=== PATIENT | male | born 1960 | race Caucasian/White ===

== ENCOUNTER 2020-09-11 10:12 | Emergency (ER) | payer BC, SELFPAY ==
[2020-09-11 10:23] VITALS: BP 119/78; PULSE 70; RESP 16; TEMP 36.2; O2SAT 98
--- NOTE | 2020-09-11 10:54 | W.ED.GENAD ---
Discharge Plan Disposition Patient Disposition: HOME Condition: Stable Discharge Details Clinical Impression: Shingles, Lumbar strain Primary Care Provider: Unknown,Unknown ED Provider: Uzma Carrasquillo Home Meds and New Rx's Prescriptions: New valacyclovir 1 gram tablet 1,000 mg PO TID 7 Days Qty: 21 RF: 0 No Action nystatin 500,000 unit Tablet 500,000 unit PO DAILY RF: 0 calcium carbonate-vitamin D3 [Calcium + D] 600 mg(1,500mg) -200 unit Tablet 1 tab PO DAILY RF: 0 disulfiram 250 mg Tablet 250 mg PO DAILY RF: 0 ascorbic acid (vitamin C) [Vitamin C] 250 mg Tablet 250 mg PO DAILY RF: 0 zinc 25 mg Tablet 25 mg PO DAILY RF: 0 doxycycline hyclate 100 mg Tablet 100 mg PO BID RF: 0 Prostate 140 mg Capsule 140 mg PO DAILY RF: 0 cholecalciferol (vitamin D3) [Vitamin D3] 125 mcg (5,000 unit) Tablet 5,000 mcg PO DAILY RF: 0 turmeric 400 mg Capsule 400 mg PO DAILY RF: 0 Nattokinase 50 mg Capsule 100 mg PO DAILY RF: 0 Liposomal Glutathione 450 mg PO DAILY RF: 0 Discharge Instructions Instructions: Shingles (ED), Low Back Strain (ED) Additional Instructions: Take valacyclovir as directed for the next 7 days. You may also apply lidocaine patches to the area which you can get [id number]. Follow up with primary care provider in 3-5 days. Return to ED sooner if any worsening or concerns. Increase oral fluids. Please take Tylenol or Ibuprofen with food every 4-6 hours as needed for pain and swelling. Please return to the ER for fever, chills or be seen by her PCP. The urine today showed no evidence for kidney stones no blood in the urine. A varicella antibody level was sent that is a send out we will not get that back today. The rest of the labs CBC BMP were all within normal limits. Discharge Data Discharge Date/Time-TO BE ENTERED AT DEPARTURE: 09/11/20 12:32 Medical Decision Making 59-year-old male presents to the ER with chief complaint of right lower back pain which radiates around into his right groin and testicle. Worse at night. Back pain began approximately 6 days ago after moving a generator by himself out of a car. Clustered red non to the raised rash started this morning to his right posterior lower lumbar area and right lateral hip. He describes sharp shooting pain worse at night. Has been taking Advil for the last 3 nights. Denies any nausea vomiting diarrhea, no fever chills no shortness of breath no chest pain. History of Lyme disease. He denies any testicular swelling, does at baseline have some urinary hesitancy no change from baseline. Labs obtained CBC CMP which are within normal limits at this time I do feel that this is consistent with possible varicella infection with the rash and pain associated. I did discuss this with patient and family. A varicella antibody was added onto the labs and is a send out at this time. Prescription for valacyclovir time 7 days was written. Discussed follow-up with primary care provider discuss strict return instructions. This text was generated using [employer] system, please disregard any oddities of phrase or misspellings. HPI General Mode of arrival: ambulatory. Date/Time Provider Initiated Documentation: 09/11/20 10:22. Limitations to Documentation: no limitations. Information obtained by: patient and family (). HPI Narrative: 59-year-old male presents to the ER with chief complaint of right lower back pain which radiates around into his right groin and testicle. Worse at night. Back pain began approximately 6 days ago after moving a generator by himself out of a car. Clustered red non to the raised rash started this morning to his right posterior lower lumbar area and right lateral hip. He describes sharp shooting pain worse at night. Has been taking Advil for the last 3 nights. Denies any nausea vomiting diarrhea, no fever chills no shortness of breath no chest pain. History of Lyme disease. He denies any testicular swelling, does at baseline have some urinary hesitancy no change from baseline Related Data Home Medications Medication Instructions Recorded Confirmed Liposomal Glutathione 450 mg PO DAILY 09/11/20 09/11/20 ascorbic acid (vitamin C) [Vitamin 250 mg PO DAILY 09/11/20 09/11/20 C] calcium carbonate-vitamin D3 1 tab PO DAILY 09/11/20 09/11/20 [Calcium + D] cholecalciferol (vitamin D3) 5,000 mcg PO DAILY 09/11/20 09/11/20 [Vitamin D3] disulfiram 250 mg PO DAILY 09/11/20 09/11/20 doxycycline hyclate 100 mg PO BID 09/11/20 09/11/20 nystatin 500,000 unit PO DAILY 09/11/20 09/11/20 organ concentrates [Prostate] 140 mg PO DAILY 09/11/20 09/11/20 soybean, fermented [Nattokinase] 100 mg PO DAILY 09/11/20 09/11/20 turmeric 400 mg PO DAILY 09/11/20 09/11/20 valacyclovir 1,000 mg PO TID 7 Days #21 tab 09/11/20 zinc 25 mg PO DAILY 09/11/20 09/11/20 Previous Rx's Medication Instructions Recorded valacyclovir 1,000 mg PO TID 7 Days #21 tab 09/11/20 General Stated Complaint: Abd Prob DAMON: 3 Review of Systems Narrative: Constitutional: Negative for weight loss, alert and oriented, well groomed, normal body habitus, appears comfortable. HEENT: Denies trauma, headaches, blurry vision, nasal discharge, sore throat, trouble swallowing. Chest: Denies chest pain, palpitations, irregular rhythm, hypertension. Respiratory: Denies Shortness of breath, cough, hemoptysis. GI: Denies abdominal pain, vomiting, diarrhea, constipation. Does have intermittent nausea at baseline. : Denies dysuria, hematuria, flank pain, rectal bleeding. Musculoskeletal: Does complain of right lower lumbar tenderness, no loss of bowel or bladder control no problems urinating. Skin:He does have a rash noted to his right flank in clusters. Sharp shooting pain associated with this. Neuro: Denies dizziness, blurry vision, weakness, syncope, headache or facial numbness. Hematologic: Denies easy bruising, intolerance to heat or cold, hair loss. [facility] Social History Smoking/Tobacco Use Status: Never Smoking risk assessment performed?: Yes Alcohol Intake: former Drug use: Occasionally Substance use type: marijuana Do you feel safe at home: Yes Do you feel safe in your relationship?: Yes Exam Narrative Exam Narrative: Constitutional: Alert and oriented x3. Appears stated age. Normal body habitus. Head: Normocephalic, no trauma. Eyes: Pupils PERRLA, Red reflex noted, EOM's intact. Eyelids symmetrical without lesions, discharge, or swelling. ENT: Bilateral TM's WNL, External ear normal to inspection, no mastoid TTP, swelling, or erythema, Nasal turbinates WNL, no nasal discharge. Normal dentition, Posterior pharynx WNL, no exudate. Chest: RRR, Normal S1, S2, distal pulses intact. Resp: Lungs clear to auscultation bilaterally, no wheezes, rales, or rhonchi. Abdomen: Soft, nondistended nontender to palpation all 4 quadrants. : No testicle swelling no abnormal lesions noted no testicular tenderness with palpation. [facility] staff witnessed at bedside. For exam. Musculoskeletal: Normal gait, 5/5 strength to all four extremities. Skin: Clustered red raised area noted to the right flank. Capillary refill less than 2 sec. Neurologic: Cranial nerves II-XII intact. Alert and oriented x 3. DTR's intact. Hematologic/Lymphatic: No ecchymosis, no lymphadenopathy. Course Vital Signs Vital signs: Vital Signs Temperature 36.2 C L 09/11/20 10:23 Pulse 70 09/11/20 10:23 Respiratory Rate 16 09/11/20 10:23 Blood Pressure 119/78 09/11/20 10:23 Pulse Oximetry 98 09/11/20 10:23 Temperature 36.2 C L 09/11/20 10:23 Temperature Source Temporal Artery Scan 09/11/20 10:23 Pulse 70 09/11/20 10:23 Respiratory Rate 16 09/11/20 10:23 Respiratory Effort Non-Labored 09/11/20 10:32 Blood Pressure 119/78 09/11/20 10:23 Blood Pressure Position Sitting 09/11/20 10:23 Pulse Oximetry 98 09/11/20 10:23 Oxygen Delivery Method Room Air 09/11/20 10:23 Oxygen Flow Rate 0 09/11/20 10:23 Pain Level 4 09/11/20 10:23 Comment 09/11/20 10:23
[2020-09-11 10:58] LABS: Bilirubin Negative (Negative); Blood Negative (Negative); Clarity Clear (Clear); Glucose Negative (Negative); Ketones Negative (Negative); Leukocyte Esterase Negative (Negative); Nitrite Negative (Negative); Urobilinogen 0.2 EU/dL (Up TO 0.2); pH 5.5 (5-8)
[2020-09-11] MEDS: Lidocaine 5% Patch 1 PATCH TP (11:25)
[2020-09-11 11:44] LABS: Abs Immature Grans 0.01 10^3/uL (0.0-0.06); Absolute Basophil Count 0.04 10^3/uL (0.0-0.2); Absolute Eosinophil Count 0.04 10^3/uL (0.0-0.7); Absolute Lymphocyte Count 1.22 10^3/uL (1.2-3.4); Absolute Monocyte Count 0.68 10^3/uL (0.1-0.8); Absolute Neutrophil Count 2.68 10^3/uL (1.2-6.7); Basophils % 0.9; Eosinophils % 0.9; HCT 43.6 % (40.0-50.0); HGB 15.4 g/dL (13.5-17.5); Immature Grans % 0.2; Lymphocytes % 26.1; MCH 31.5 pg (27.0-33.0); MCHC 35.3 % (32.0-36.0); MCV 89.2 fL (80-95); Monocytes % 14.6; Neutrophils % 57.3; Nucleated RBC 0 %; Platelet Count 185 10^3/uL (130-400); RBC 4.89 10^6/uL (4.36-5.78); RDW 11.7 % (11.8-14.1); RDW-SD 37.6 fL; WBC 4.67 10^3/uL (4.4-10.8)
[2020-09-11 11:52] LABS: Anion Gap 7.2 mmol/L (3-11); BUN 15 mg/dL (7-18); CO2 30.8 mmol/L (21.0-32.0); Chloride 105 mmol/L (98-107); Glucose 78 mg/dL (74-106); Potassium 4.2 mmol/L (3.5-5.1); Sodium 143 mmol/L (136-145)
[2020-09-11 12:02] VITALS: BP 113/64; PULSE 58; RESP 20; TEMP 36.5; O2SAT 98
[2020-09-14 11:19] LABS: Varicella IgG Antibody Positive (See Note)
== END 2020-09-11 12:32 | disposition home or self-care (01) ==
PROVIDERS: Emergency Provider Registered Nurse Emergency
DX: B02.9 Zoster without complications (principal); S39.012A Strain of muscle, fascia and tendon of lower back, initial encounter; X50.0XXA Overexertion from strenuous movement or load, initial encounter
CPT/HCPCS: 36415; 80048; 86787; 99283; 81003; 85025